=== PATIENT | female | born 1950 | race Caucasian/White ===

== ENCOUNTER 2017-05-29 13:24 | Emergency (ER) | payer OTHER, BC ==
[2017-05-29] MEDS ORDERED: NA CHLORIDE 0.9% 500 ML ONE (13:35)
[2017-05-29 14:12] LABS: Absolute Lymphocytes (CBC) 1.8 K/uL (0.7-4.9); Absolute Monocytes 0.7 K/uL (0.1-1.3); Absolute Neutrophil 7.5 K/uL (1.8-8.0); Basophils % 1.1 % (0-1.3); Eosinophils % 2.9 % (0-4.4); Hematocrit 37.2 % (36.0-45.0); Lymphocytes % 17.1 % (15.3-44.8); MCH 29.9 pg (27.0-35.0); MCV 91.3 fL (80-100); MPV 7.3 fL (7.6-11.3); RBC Red Blood Cell Count 4.07 M/uL (3.86-4.86)
[2017-05-29 14:20] LABS: Protime INR 1.08
[2017-05-29 14:43] LABS: Potassium 3.5 mEq/L (3.6-5.0)
[2017-05-29 14:50] LABS: Bilirubin Direct 0.1 mg/dL (0-0.2); Bilirubin Total 0.6 mg/dL (0.3-1.2); Protein, Total 8.8 g/dL (6.0-8.3)
--- NOTE | 2017-05-29 14:51 | RAD REPORT ---
EXAM DESCRIPTION: CT - Head Brain Wo Cont - 05/29/2017 2:36 pm CLINICAL HISTORY: Syncope, head injury. COMPARISON: None. TECHNIQUE: All CT scans are performed using dose optimization technique as appropriate and may inclu de automated exposure control or mA/KV adjustment according to patient size. FINDINGS: No intracranial hemorrhage, hydrocephalus or extra-axial fluid collection.No areas of brai n edema or evidence of midline shift. The paranasal sinuses and mastoids are clear. The calvarium is intact. IMPRESSION: No acute intracranial abnormality.
--- NOTE | 2017-05-29 15:02 | RAD REPORT ---
EXAM DESCRIPTION: RAD - Chest Single View - 05/29/2017 2:51 pm CLINICAL HISTORY: Chest pain, syncope COMPARISON: None. FINDINGS: Portable technique limits examination quality. The lungs are grossly clear. The heart is upper limit normal size. No displaced fractures. IMPRESSION: No acute intrathoracic process suspected.
[2017-05-29 15:21] LABS: Urine Bacteria <20 /HPF (<20); Urine Culture Reflex Order NOT NEEDED; Urine RBC <5 /HPF (NONE SEEN)
[2017-05-29 15:57] LABS: Urine Blood NEGATIVE (NEG); Urine Glucose NEGATIVE (NEG); Urine Protein TRACE (NEG)
--- NOTE | 2017-05-29 17:02 | ER ---
Nurse's Notes [facility] Name: Sierra Coleman Age: 67 yrs Sex: Female : 1950 Arrival Date: 05/29/2017 Time: 13:26 Bed 30 Private MD: Diagnosis: Syncope and collapse;Hypokalemia Presentation: 05/29 13:19 Presenting complaint: EMS states: syncopal episode at home today. Pt woke up sv disoriented and called 911. Pt stated that she vomited. On EMS arrival pt was A\T\O x3 HR 110 with occassional PVCs. BP 165/91 96% RA placed on O2 \T\ 2L per NC O2 sat up to 99%. pt now reports dyspnea. Transition of care: patient was not received from another setting of care. Onset of symptoms was May 29, 2017. 13:19 Method Of Arrival: EMS: [email or web address] sv 13:19 Acuity: MIREYA 3 sv 13:20 Initial Sepsis Screen: Does the patient meet any 2 criteria? No. Patient's initial sv sepsis screen is negative. Does the patient have a suspected source of infection? No. Patient's initial sepsis screen is negative. Care prior to arrival: IV initiated. 20 GA, in the right antecubital area, Oxygen administered. via nasal cannula. Triage Assessment: 13:57 Neuro: Reports a syncopal episode. tl3 Historical: - Allergies: 13:40 No Known Allergies; sv - Home Meds: 13:40 Prednisone Oral [Active]; Enbrel subcutaneous subcutaneous [Active]; sv - PMHx: 13:40 RA; sv - Immunization history:: Adult Immunizations up to date, Flu vaccine is not up to date. - Social history:: Smoking status: Patient/guardian denies using tobacco, Patient/guardian denies using alcohol. - Family history:: not pertinent. - Hospitalizations: : No recent hospitalization is reported. Screenin:35 Abuse screen: Denies threats or abuse. Nutritional screening: No deficits noted. tl3 Tuberculosis screening: No symptoms or risk factors identified. Fall Risk None identified. Assessment: 13:35 Reassessment: pt reports feeling weak and like she was going to pass out at home. tl3 General: Appears uncomfortable, well groomed, well developed, well nourished, Behavior is calm, cooperative, appropriate for age. Pain: Denies pain. Neuro: Level of Consciousness is awake, alert, obeys commands, Oriented to person, place, time, situation, Appropriate for age. Cardiovascular: Heart tones S1 S2 present Capillary refill < 3 seconds in bilateral fingers Rhythm is regular. Respiratory: Airway is patent Trachea midline Breath sounds are clear bilaterally. GI: No signs and/or symptoms were reported involving the gastrointestinal system. : No signs and/or symptoms were reported regarding the genitourinary system. EENT: No signs and/or symptoms were reported regarding the EENT system. Derm: Skin is intact, Skin is dry, Skin is pale, Skin temperature is warm. Musculoskeletal: No signs and/or symptoms reported regarding the musculoskeletal system. 14:14 Reassessment: Patient and/or family updated on plan of care and expected duration. Pain tl3 level reassessed. Patient is alert, oriented x 3, equal unlabored respirations, skin warm/dry/pink. pt assisted to bedside commode, urine obtained. 15:01 Reassessment: pt back from CT reconnected to monitors, repositioned for comfort, family tl3 at bedside. 15:48 Reassessment: No changes from previously documented assessment. Patient and/or family tl3 updated on plan of care and expected duration. Pain level reassessed. Patient is alert, oriented x 3, equal unlabored respirations, skin warm/dry/pink. pt repositioned for comfort, no needs at this time, resting comfortably. 16:44 Reassessment: No changes from previously documented assessment. Patient and/or family tl3 updated on plan of care and expected duration. Pain level reassessed. Patient is alert, oriented x 3, equal unlabored respirations, skin warm/dry/pink. Dr Kim at bedside discussing POC. Vital Signs: 13:29 BP 151 / 95; Pulse 103; Resp 15; Temp 98.9; Pulse Ox 99% ; Weight 90.72 kg; Height 5 sv ft. 0 in. (152.40 cm); Pain 3/10; 14:14 BP 160 / 92; Pulse 115; Resp 16; Pulse Ox 100% on 1 lpm NC; tl3 15:01 BP 155 / 95; Pulse 110; Resp 18; Pulse Ox 94% on R/A; tl3 16:44 BP 157 / 84; Pulse 55; Resp 18; Pulse Ox 97% ; tl3 13:29 Body Mass Index 39.06 (90.72 kg, 152.40 cm) sv ED Course: 13:19 Maintain EMS IV. Dressing intact. Site clean \T\ dry. Gauge \T\ site: 20G R AC. sv 13:26 Patient arrived in ED. sv 13:26 Jada Yao, RN is Primary Nurse. sv 13:28 Anand Kim MD is Attending Physician. rn 13:29 Triage completed. sv 13:35 No apparent distress. Resting quietly. tl3 13:35 No provider procedures requiring assistance completed. Maintain EMS IV. Dressing tl3 intact. Site clean \T\ dry. Gauge \T\ site: . 13:35 Patient has correct armband on for positive identification. Bed in low position. Call tl3 light in reach. Side rails up X2. Adult w/ patient. nitroglycerin nitrator operator batch on. Pulse ox on. NIBP on. 13:52 EKG done, by it technical architect. reviewed by Anand Kim MD. dt2 13:56 Arm band placed on right wrist. EKG completed in triage. Results shown to MD. tl3 14:36 CT Head Brain wo Cont In Process Unspecified. EDMS 14:48 X-ray completed. Patient tolerated procedure well. sw 14:49 Patient moved back from radiology. sw 14:49 XRAY Chest (1 view) In Process Unspecified. EDMS 16:44 Kathy Mckeon, RN is Primary Nurse. tl3 17:13 IV discontinued, intact, bleeding controlled, No redness/swelling at site. Pressure tl3 dressing applied. Administered Medications: 13:53 Drug: NS 0.9% 500 ml Route: IV; Rate: bolus; Site: right antecubital; Delivery: Primary tl3 tubing; 15:00 Follow up: IV Status: Completed infusion; IV Intake: 500ml tl3 Point of Care Testing: Blood Glucose: 14:30 Blood Glucose: 102 mg/dL; tl3 Ranges: Intake: 15:00 IV: 500ml; Total: 500ml. tl3 Outcome: 17:01 Discharge ordered by . rn 17:13 Discharged to home via wheelchair. tl3 17:13 Condition: stable 17:13 Discharge instructions given to patient, family, Instructed on discharge instructions, follow up and referral plans. Demonstrated understanding of instructions, follow-up care, stressed returning to ED with worsening S/S, follow up with PCP 17:14 Patient left the ED. tl3 Signatures: Dispatcher [employer] Jada Rinaldi RN RN sv Nieto, Roman, MD MD rn Warren, Shannon sw Lowrey, Tammy, RN RN tl3 Kellie Andrade dt2
--- NOTE | 2017-05-29 17:02 | EDPHYS ---
Physician Documentation [facility] Name: Sierra Coleman Age: 67 yrs Sex: Female : 1950 Arrival Date: 05/29/2017 Time: 13:26 Bed 30 Private MD: ED Physician Anand Kim HPI: 05/29 13:31 This 67 yrs old Female presents to ER via EMS with complaints of Syncope. rn 13:31 The patient has experienced syncope. Onset: The symptoms/episode began/occurred just rn prior to arrival. Duration: This was a single episode. Associated signs and symptoms: Pertinent positives: dizziness, lightheadedness, shortness of breath, weakness. The patient has not experienced similar symptoms in the past. Reports sitting, felt lightheaded, passed out, unknown duration, woke up and called 911 herself, reports has only had small amount of dr. pepper today, no headache, reports weeks of mild sob and cough, no fever, no chest pain/abd pain, no diarrhea, had single episode of emesis after waking up, no focal weakness or numbness.. Historical: - Allergies: 13:40 No Known Allergies; sv - Home Meds: 13:40 Prednisone Oral [Active]; Enbrel subcutaneous subcutaneous [Active]; sv - PMHx: 13:40 RA; sv - Immunization history:: Adult Immunizations up to date, Flu vaccine is not up to date. - Social history:: Smoking status: Patient/guardian denies using tobacco, Patient/guardian denies using alcohol. - Family history:: not pertinent. - Hospitalizations: : No recent hospitalization is reported. ROS: 13:31 Constitutional: Negative for fever, chills, and weight loss, Eyes: Negative for injury, rn pain, redness, and discharge, Neck: Negative for injury, pain, and swelling, Cardiovascular: Negative for chest pain, palpitations, and edema, Respiratory: Negative for wheezing, and pleuritic chest pain, Abdomen/GI: Negative for abdominal pain, diarrhea, and constipation, MS/Extremity: Negative for injury and deformity, Skin: Negative for injury, rash, and discoloration, Neuro: Negative for headaches, numbness, tingling, and seizure. Exam: 13:31 Constitutional: Overweight patient who is awake, alert, and in no acute distress. Pale rn skin. Head/Face: Normocephalic, atraumatic. Eyes: Pupils equal round and reactive to light, extra-ocular motions intact. Lids and lashes normal. Conjunctiva and sclera are non-icteric and not injected. Cornea within normal limits. Periorbital areas with no swelling, redness, or edema. Neck: Trachea midline, no thyromegaly or masses palpated, and no cervical lymphadenopathy. Supple, full range of motion without nuchal rigidity, or vertebral point tenderness. No Meningismus. Cardiovascular: tachycardic, regular, no murmur Respiratory: No increased respiratory effort, no wheezing, speaking full sentences Abdomen/GI: Soft, non-tender, with normal bowel sounds. No distension or tympany. No guarding or rebound. No evidence of tenderness throughout. MS/ Extremity: Pulses equal, no cyanosis. Neurovascular intact. Full, normal range of motion. Equal circumference. Neuro: Awake and alert, GCS 15, oriented to person, place, time, and situation. Cranial nerves II-XII grossly intact. Motor strength 5/5 in all extremities. Sensory grossly intact. Vital Signs: 13:29 BP 151 / 95; Pulse 103; Resp 15; Temp 98.9; Pulse Ox 99% ; Weight 90.72 kg; Height 5 sv ft. 0 in. (152.40 cm); Pain 3/10; 14:14 BP 160 / 92; Pulse 115; Resp 16; Pulse Ox 100% on 1 lpm NC; tl3 15:01 BP 155 / 95; Pulse 110; Resp 18; Pulse Ox 94% on R/A; tl3 16:44 BP 157 / 84; Pulse 55; Resp 18; Pulse Ox 97% ; tl3 13:29 Body Mass Index 39.06 (90.72 kg, 152.40 cm) sv MDM: 13:28 Patient medically screened. rn 16:59 Differential Diagnosis: cardiac arrhythmia, idiopathic syncope, seizure, transient rn ischemic attack, vasovagal episode. Data reviewed: vital signs, nurses notes, lab test result(s), EKG, radiologic studies, CT scan, plain films, and as a result, I will admit patient. Counseling: I had a detailed discussion with the patient and/or guardian regarding: the historical points, exam findings, and any diagnostic results supporting the discharge/admit diagnosis, lab results, radiology results, the need for further work-up and treatment in the hospital. Refusal of service: The patient/guardian displays adequate decision making capability and despite a detailed discussion of alternatives, benefits, risks, and consequences refuses: Admission to the hospital for further work-up and treatment. ED course: Recommended admission/observation to hospital for syncope of unknown etiology, patient requests to go home, states feels better, comfortable knowing nothing big is happening, states will return if worsens. Family/ ok with taking her home per her wishes. . 05/29 13:29 Order name: Basic Metabolic Panel; Complete Time: 15: rn 05/29 13:29 Order name: BNP; Complete Time: 15: rn 05/29 13:29 Order name: CBC with Diff; Complete Time: 15:05/29 13:29 Order name: Hepatic Function; Complete Time: 15: rn 05/29 13:29 Order name: Lipase; Complete Time: 15:05/29 13:29 Order name: Protime (+inr); Complete Time: 15:05/29 13:29 Order name: Ptt, Activated; Complete Time: 15: rn 05/29 13:29 Order name: Troponin (emerg Dept Use Only); Complete Time: 15: rn 05/29 13:29 Order name: Type And Screen; Complete Time: 15: rn 05/29 13:29 Order name: Urine Culture rn 05/29 13:30 Order name: Urine Microscopic Only; Complete Time: 15:58 EDSD 05/29 14:03 Order name: Glucose, Ancillary Testing; Complete Time: 15: EDSD 05/29 14:44 Order name: ABO/RH no charge; Complete Time: 15: EDSD 05/29 13:29 Order name: CT Head Brain wo Cont; Complete Time: 15: rn 05/29 13:29 Order name: EKG; Complete Time: 13:30 rn 05/29 13:29 Order name: Cardiac monitoring; Complete Time: 13: rn 05/29 13:29 Order name: EKG - Nurse/Tech; Complete Time: 13:59 05/29 13:29 Order name: IV Saline Lock; Complete Time: 13: rn 05/29 13:29 Order name: Labs collected and sent; Complete Time: 13:05/29 13:29 Order name: NPO; Complete Time: 13:59 rn 05/29 13:29 Order name: O2 Per Protocol; Complete Time: 13:59 rn 05/29 13:29 Order name: O2 Sat Monitoring; Complete Time: 13:59 rn 05/29 13:29 Order name: Urine Dipstick-Ancillary (obtain specimen); Complete Time: 14:13 rn 05/29 13:29 Order name: XRAY Chest (1 view); Complete Time: 15:17 rn 05/29 15:14 Order name: Urine Dipstick--Ancillary (enter results); Complete Time: 15:58 mw2 Administered Medications: 13:53 Drug: NS 0.9% 500 ml Route: IV; Rate: bolus; Site: right antecubital; Delivery: Primary tl3 tubing; 15:00 Follow up: IV Status: Completed infusion; IV Intake: 500ml tl3 Point of Care Testing: Blood Glucose: 14:30 Blood Glucose: 102 mg/dL; tl3 Ranges: Critical Glucose Levels:Adult <50 mg/dl or >400 mg/dl <40 mg/dl or >180 mg/dl Disposition: 05/29/17 17:01 Discharged to Home. Impression: Syncope and collapse, Hypokalemia. - Condition is Stable. - Discharge Instructions: Potassium Content of Foods, Syncope, Hypokalemia. - Medication Reconciliation Form, Thank You Letter, Antibiotic Education, Prescription Opioid Use form. - Follow up: Private Physician; When: As needed; Reason: Recheck today's complaints, Re-evaluation by your physician. - Problem is new. - Symptoms have improved. Signatures: Dispatcher [employer] Jada Rinaldi RN RN sv Nieto, Roman, MD MD rn Lowrey, Tammy, RN RN tl3 Corrections: (The following items were deleted from the chart) 13:35 13:31 Constitutional: This is a well developed, well nourished patient who is awake, rn alert, and in no acute distress. Pale skin. Head/Face: Normocephalic, atraumatic. Eyes: Pupils equal round and reactive to light, extra-ocular motions intact. Lids and lashes normal. Conjunctiva and sclera are non-icteric and not injected. Cornea within normal limits. Periorbital areas with no swelling, redness, or edema. Neck: Trachea midline, no thyromegaly or masses palpated, and no cervical lymphadenopathy. Supple, full range of motion without nuchal rigidity, or vertebral point tenderness. No Meningismus. Cardiovascular: tachycardic, regular, no murmur Respiratory: No increased respiratory effort, no wheezing, speaking full sentences Abdomen/GI: Soft, non-tender, with normal bowel sounds. No distension or tympany. No guarding or rebound. No evidence of tenderness throughout. MS/ Extremity: Pulses equal, no cyanosis. Neurovascular intact. Full, normal range of motion. Equal circumference. Neuro: Awake and alert, GCS 15, oriented to person, place, time, and situation. Cranial nerves II-XII grossly intact. Motor strength 5/5 in all extremities. Sensory grossly intact. rn 13:59 13:30 UA MICROSCOPIC+U.LAB.BRZ ordered. EDMS EDMS
--- NOTE | 2017-05-30 07:00 | EKG ---
Test Date: 2017-05-29 Test Time: 13:42:28 [employer] Specialist: AJITH MEASUREMENT RESULTS: Intervals: Rate: 106 TN: 144 QRSD: 60 QT: 336 QTc: 446 [place]: P: 52 TN: 144 QRS: 16 T: 36 INTERPRETIVE STATEMENTS: Sinus tachycardia with premature ventricular complexes Otherwise normal ECG Compared to ECG 12/16/2001 09:32:00 ventricular premature complex(es) now present Electronically Signed On 05-30-17 06:59:57 CDT by Devante Granados
== END 2017-05-29 17:14 | disposition home or self-care (01) ==
LOC: ER 13:24
DX: E87.6 Hypokalemia (principal)
CPT/HCPCS: 36415; 70450; 71045; 80048; 80076; 81003; 81015; 82962; 83690; 83880; 84484; 85025; 85610; 85730; 86850; 86900; 86901; 87086; 87088; 93005; 96360; 99284